=== PATIENT | female | born 1990 | race American Indian/Alaskan Native ===

== ENCOUNTER 2019-04-19 15:44 | Emergency (ER) | payer SELFPAY ==
[2019-04-19 16:16] VITALS: BP 122/77
--- NOTE | 2019-04-19 16:17 | Event Note ---
ED Screening Note Date of service: 04/19/19 Time: 16:15 ED Screening Note: This is a 28 y.o. F. that presents to the ER with sore throat, chills, and body aches since yesterday. Started taking theraflu with minimal improvement of symptoms. This initial assessment/diagnostic orders/clinical plan/treatment(s) is/are subject to change based on patients health status, clinical progression and re- assessment by fellow clinical providers in the ED. Further treatment and workup at subsequent clinical providers discretion. Patient/guardian urged not to elope from the ED as their condition may be serious if not clinically assessed and managed. Initial orders include: Rapid strep
--- NOTE | 2019-04-19 18:37 | Emergency Department Report ---
Minor Respiratory - HPI Chief Complaint: Upper Respiratory Infection Stated Complaint: FLU SX Time Seen by Provider: 04/19/19 16:14 Duration: 1 Day Minor Respiratory: Yes Rhinorrhea, Yes Sore Throat, Yes Able to Tolerate Fluids, No Ear Pain, No Cough, No Sick Contacts, No Hemoptysis, No Shortness of Breath, No Fever Other History: 28-year-old -Indian female presents to the emergency r oom for 1 day history of body aches, sore throat, headache and chills. Patient states she has taken TheraFlu approximate 4 doses. Patient denies any fever. She denies any past medical history takes no medications on a daily basis and has no known drug allergies. ED Review of Systems ROS: Stated complaint: FLU SX Other details as noted in HPI ED Past Medical Hx - Past Medical History Previous Medical History?: No - Surgical History Past Surgical History?: No - Social History Smoking Status: Never Smoker Minor Respiratory Exam - Exam General: Vital signs noted. No distress. Alert and acting appropriately. Neurologic: Alert and oriented, no deficits. Musculoskeletal: Unremarkable. ED Course Vital Signs 04/19/19 16:12 Temperature 98.3 F Pulse Rate 111 H Respiratory 18 Rate Blood Pressure 122/77 O2 Sat by Pulse 98 Oximetry ED Medical Decision Making - Medical Decision Making 28-year-old -Indian female presents to the emergency room for 1 day history of body aches, sore throat, headache and chills. Patient states she has taken TheraFlu approximate 4 doses. Patient denies any fever. She denies any past medical history takes no medications on a daily basis and has no known drug allergies. Strep negative. Discussed the patient she needs to increase her fluid intake she can take ibuprofen or Tylenol for symptoms. Discussed the patient she can follow up with her primary care provider if symptoms persist or gets worse. Critical care attestation.: If time is entered above; I have spent that time in minutes in the direct care of this critically ill patient, excluding procedure time. ED Disposition Clinical Impression: Acute viral syndrome Disposition: DC-01 TO HOME OR SELFCARE Is pt being admited?: No Does the pt Need Aspirin: No Condition: Stable Instructions: Viral Syndrome (ED) Additional Instructions: Increase fluid intake take Tylenol and/or ibuprofen for body aches and sore throat and headache. Follow up with her primary care provider if his symptoms persist or gets worse. I recommended getting a flu vaccination this season. Referrals: Your,Provider [Other] - 3-5 Days
== END 2019-04-19 18:44 | disposition home or self-care (01) ==
LOC: ED 15:44
DX: B34.9 Viral infection, unspecified (principal)
CPT/HCPCS: 87116; 87430

== ENCOUNTER 2021-12-31 07:59 | Emergency (ER) | payer SELFPAY ==
[2021-12-31 08:12] VITALS: BP 113/65
[2021-12-31 09:51] LABS: Hematocrit 42.9 % (30.3-42.9); Hemoglobin 14.5 gm/dl (10.1-14.3); Mean Corpuscular HGB Conc 34 % (30-34); Mean Corpuscular Volume 82 fl (79-97); Platelet Count 245 K/mm3 (140-440); Red Blood Count 5.25 M/mm3 (3.65-5.03); Red Cell Distribution Width 14.4 % (13.2-15.2)
[2021-12-31 10:04] LABS: Basophils % (Auto) 0.2 % (0.0-1.8); Eosinophils % (Auto) 0.2 % (0.0-4.3); Lymphocytes # (Auto) 0.6 K/mm3 (1.2-5.4); Lymphocytes % (Auto) 11.1 % (13.4-35.0); Monocytes # (Auto) 0.3 K/mm3 (0.0-0.8); Monocytes % (Auto) 6.3 % (0.0-7.3)
[2021-12-31 10:17] LABS: Alanine Aminotransferase 17 units/L (7-56); Albumin 4.7 g/dL (3.9-5); Blood Urea Nitrogen 7 mg/dL (7-17); Calcium 9.4 mg/dL (8.4-10.2); Hemolysis Index 2
[2021-12-31 10:18] LABS: BUN/Creatinine Ratio 18
== END 2021-12-31 13:45 | disposition left against medical advice (07) ==
LOC: ED 07:59
DX: R11.2 Nausea with vomiting, unspecified (principal); Z53.21 Procedure and treatment not carried out due to patient leaving prior to being seen by health care provider
CPT/HCPCS: 36415; 80053; 85025

== ENCOUNTER 2022-01-02 07:35 | Emergency (ER) | payer SELFPAY ==
--- NOTE | 2022-01-02 07:52 | Emergency Department Report ---
ED N/V/D HPI - General Stated complaint: NAUSEA/DIARRHEA Time Seen by Provider: 01/02/22 07:51 - Related Data Previous Rx's Medication Instructions Recorded Last Taken Type Ondansetron [Zofran Odt] 4 mg PO Q8HR PRN #10 tab.rapdis 01/02/22 Unknown Rx Allergies Allergy/AdvReac Type Severity Reaction Status Date / Time No Known Allergies Allergy Unverified 04/19/19 16:16 ED Review of Systems ROS: Stated complaint: NAUSEA/DIARRHEA Other details as noted in HPI Comment: All other systems reviewed and negative ED Past Medical Hx - Past Medical History Previous Medical History?: No Hx Seizures: Yes Additional medical history: BV, Vaginal delivery x 1 - Surgical History Past Surgical History?: No - Family History Family history: no significant - Social History Smoking Status: Never Smoker Substance Use Type: None - Medications Home Medications: Home Medications Medication Instructions Recorded Confirmed Last Taken Type Ondansetron [Zofran Odt] 4 mg PO Q8HR PRN #10 tab.rapdis 01/02/22 Unknown Rx ED Physical Exam - General General appearance: alert, in no apparent distress - Head Head exam: Present: atraumatic, normocephalic - Eye Eye exam: Present: normal appearance - ENT ENT exam: Present: mucous membranes moist - Neck Neck exam: Present: normal inspection - Respiratory Respiratory exam: Present: normal lung sounds bilaterally. Absent: respiratory distress - Cardiovascular Cardiovascular Exam: Present: regular rate, normal rhythm. Absent: systolic murmur, diastolic murmur, rubs, gallop - GI/Abdominal GI/Abdominal exam: Present: soft, normal bowel sounds - Extremities Exam Extremities exam: Present: normal inspection - Back Exam Back exam: Present: normal inspection - Neurological Exam Neurological exam: Present: alert, oriented X3 - Psychiatric Psychiatric exam: Present: normal affect, normal mood - Skin Skin exam: Present: warm, dry, intact, normal color. Absent: rash ED Course Vital Signs 01/02/22 07:47 Pulse Rate 82 Respiratory 14 Rate Blood Pressure 125/74 O2 Sat by Pulse 98 Oximetry ED Medical Decision Making - Lab Data Result diagrams: 01/02/22 10:44 - Medical Decision Making Lab Results 01/02/22 01/02/22 Range/Units 10:44 Unknown WBC 4.4 L (4.5-11.0) K/mm3 RBC 5.34 H (3.65-5.03) M/mm3 Hgb 14.5 H (10.1-14.3) gm/dl Hct 44.3 H (30.3-42.9) % MCV 83 (79-97) fl MCH 27 L (28-32) pg MCHC 33 (30-34) % RDW 14.4 (13.2-15.2) % Plt Count 283 (140-440) K/mm3 Urine Color Yellow (Yellow) Urine Turbidity Cloudy (Clear) Urine pH 7.5 H (5.0-7.0) Ur Specific [place] 1.015 (1.003-1.030) Urine Protein 100 mg/dl (Negative) mg/dL Urine Glucose (UA) Negative (Negative) mg/dL Urine Ketones Trace (Negative) mg/dL Urine Blood Large A (Negative) Urine Nitrite Negative (Negative) Ur Reducing Substances Not Reportable Urine Bilirubin Negative (Negative) Urine Ictotest Not Reportable Urine Urobilinogen < 2.0 (<2.0) mg/dL Ur Leukocyte Esterase Negative (Negative) Urine WBC (Auto) 2.0 (0.0-6.0) /HPF Urine RBC (Auto) 164.0 (0.0-6.0) /HPF U Epithel Cells (Auto) 21.0 H (0-13.0) /HPF Urine Mucus 1+ /HPF Urine HCG, Qual Negative (Negative) Vital Signs 01/02/22 07:47 Pulse Rate 82 Respiratory 14 Rate Blood Pressure 125/74 O2 Sat by Pulse 98 Oximetry See labs and vital signs from yesterday as well. Critical care attestation.: If time is entered above; I have spent that time in minutes in the direct care of this critically ill patient, excluding procedure time. ED Disposition Clinical Impression: Nausea & vomiting Disposition: HOME / SELF CARE / HOMELESS Is pt being admited?: No Does the pt Need Aspirin: No Condition: Stable Instructions: Nausea and Vomiting, Adult Additional Instructions: follow up with [facility] as we discussed daily probiotic drink buttermilk and eat yogurt daily read attached material diet and activity as tolerated stay well hydrated zofran for nausea follow up as we discussed referrals below Referrals: TREY COLORADO MD [Staff Physician] - 3-5 Days ATTILA GARCIA MD [Staff Physician] - 3-5 Days Forms: Work/School Release Form(ED) Time of Disposition: 11:25
[2022-01-02 09:06] LABS: Mucus,Urine 1+ /HPF
[2022-01-02 09:29] LABS: Color,Urine Yellow (Yellow)
[2022-01-02 09:30] LABS: Bilirubin,Urine Negative (Negative); Blood,Urine Large (Negative); HCG Qualitative,Urine Negative (Negative); PH,Urine 7.5 (5.0-7.0); Urobilinogen,Urine < 2.0 mg/dL (<2.0)
[2022-01-02 11:20] LABS: Hematocrit 44.3 % (30.3-42.9); Hemoglobin 14.5 gm/dl (10.1-14.3); Mean Corpuscular HGB Conc 33 % (30-34); Mean Corpuscular Volume 83 fl (79-97); Platelet Count 283 K/mm3 (140-440); Red Blood Count 5.34 M/mm3 (3.65-5.03); Red Cell Distribution Width 14.4 % (13.2-15.2)
[2022-01-02 11:41] LABS: Alanine Aminotransferase 16 units/L (7-56); Albumin 4.8 g/dL (3.9-5); Blood Urea Nitrogen 8 mg/dL (7-17); Calcium 9.3 mg/dL (8.4-10.2); Hemolysis Index 2
[2022-01-02 11:59] VITALS: BP 119/70
[2022-01-02 12:07] LABS: BUN/Creatinine Ratio 16
== END 2022-01-02 12:00 | disposition home or self-care (01) ==
LOC: ED 07:35
DX: R11.2 Nausea with vomiting, unspecified (principal); Z79.899 Other long term (current) drug therapy
CPT/HCPCS: 36415; 80053; 81001; 81025; 83690; 85027; 99283